=== PATIENT | male | born 1970 | race African-American/Black ===

== ENCOUNTER 2024-09-14 14:15 | Emergency (ER) | payer OTHER ==
[~2024-09-14] VITALS: Ht 182.9 cm; Wt 75.0 kg
[2024-09-14 14:21] VITALS: O2SAT 97
[2024-09-14] MEDS ORDERED: IBUP-2030 MT (16:13)
[2024-09-14 16:15] VITALS: BP 122/77; PULSE 69; RESP 17; TEMP 36.7; O2SAT 99
== END 2024-09-14 16:20 | disposition home or self-care (01) ==
LOC: ER 14:15
DX: S50.312A Abrasion of left elbow, initial encounter (principal); S09.90XA Unspecified injury of head, initial encounter; M25.561 Pain in right knee; M25.511 Pain in right shoulder; Y04.0XXA Assault by unarmed brawl or fight, initial encounter; Y93.89 Activity, other specified; Y92.89 Other specified places as the place of occurrence of the external cause; Y99.8 Other external cause status
CPT/HCPCS: 70486; 72131; 73030; 73080; 73562; 99284